=== PATIENT | male | born 2000 | race Caucasian/White ===

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

== ENCOUNTER 2020-06-12 18:23 | Emergency (ER) | payer MEDICAID ==
[2020-06-12 19:02] VITALS: BP 146/76
== END 2020-06-12 19:18 | disposition left against medical advice (07) ==
LOC: ER 18:23
DX: Z53.21 Procedure and treatment not carried out due to patient leaving prior to being seen by health care provider (principal)